=== PATIENT | male | born 1965 | race Caucasian/White ===

== ENCOUNTER 2017-08-18 19:59 | Emergency (ER) | payer MEDICAID, MEDICARE ==
[2017-08-18] MEDS ORDERED: Naproxen 550 mg Tab PO STA (20:30)
[2017-08-18] MEDS ORDERED: Naproxen 550 mg Tab PO ONE (20:33)
--- NOTE | 2017-08-18 20:37 | C.PDOC ---
History Of Present Illness 52 y/o male with iddm and chronic right knee pain (due to injured nerve and torn ligament per patient, with 20 yrs of decreased rom, wears a soft knee support chronically and uses crutches for the last 2-3 years)) c/o right knee pain and swelling after a trip and fall just prior to arrival. pt did not hit head, no loc, no neck pain. denies any other injuries. - HPI Time Seen by Provider: 08/18/17 20:23 Chief Complaint (Nursing): Trauma History Per: Patient History/Exam Limitations: no limitations Onset/Duration Of Symptoms: Hrs (1) Injury Occurred (Timing): Just Before Arrival Location Of Injury: Right: Knee Severity: Moderate Past Medical History Reviewed: Historical Data, Nursing Documentation, Vital Signs Vital Signs: Last Vital Signs Temp 97.9 F 08/18/17 20:07 Pulse 102 H 08/18/17 21:22 Resp 20 08/18/17 21:22 BP 119/68 08/18/17 21:22 Pulse Ox 100 08/18/17 21:50 - Medical History PMH: Diabetes (IDDM), Gastrointestinal Ulcer, HTN, Hypercholesterolemia, Kidney Stones, Chronic Kidney Disease Surgical History: Coronary Stent (X3) - [facility] Procedures DILATION OF RIGHT URETER WITH INTRALUMINAL DEVICE, ENDO (08/10/15) ESOPHAGOGASTRODUODENOSCOPY [EGD] W/CLOSED BIOPSY (06/12/15) EXCISION OF SMALL INTESTINE, ENDO, DIAGN (08/10/15) EXTIRPATION OF MATTER FROM RIGHT URETER, ENDO (08/10/15) Family History: States: Unknown Family Hx - Social History Hx Tobacco Use: No Hx Alcohol Use: No Hx Substance Use: No - Immunization History Hx Tetanus Toxoid Vaccination: No Hx Influenza Vaccination: No Hx Pneumococcal Vaccination: No Review Of Systems Cardiovascular: Negative for: Chest Pain Musculoskeletal: Positive for: Leg Pain (right knee). Negative for: Neck Pain, Foot Pain Neurological: Negative for: Weakness, Numbness Physical Exam - Physical Exam Appears: Non-toxic, No Acute Distress Skin: Warm, Dry, No Ecchymosis Head: Atraumatic, Normacephalic Extremity: No Normal ROM (chronic decreased rom of right knee), Tenderness ( right upper medial knee), No Pedal Edema, No Calf Tenderness, No Deformity, Swelling (right medial knee) Extremity: Right: Joint Effusion (possible right suprapatellar effusion), Limited ROM To Joint (right knee) Neurological/Psych: Oriented x3, Normal Speech, Normal Cognition ED Course And Treatment O2 Sat by Pulse Oximetry: 100 Medical Decision Making Medical Decision Making: pt with chronic right knee problems with trip and fall onto right knee with mild swelling ot right proximal medial knee: cold compress, naproxen and xray. pt has his own knee support brace and crutches. prior to discharge. short knee brace with lateral supports put on patient for comfort. Disposition Counseled Patient/Family Regarding: Studies Performed, Diagnosis, Need For Followup, Rx Given - Disposition Referrals: Carlos Alberto Borja III, MD [Staff Provider] - Disposition: HOME/ ROUTINE Disposition Time: 21:46 Condition: STABLE Additional Instructions: Wear knee brace for support. COld compresses to knee several times a day to help reduce swelling. Follow up with orthopedics. Tylenol or Aleve for pain. Prescriptions: Acetaminophen [Tylenol 325mg tab] 650 mg PO Q6 #30 tab Instructions: Knee Pain (ED) Forms: [facility] ([place]inian), General Discharge Instructions - Clinical Impression Clinical Impression: Fall from slip, trip, or stumble, Contusion of knee, right
[2017-08-18 20:48] VITALS: RESP 20; TEMP 97.9
[2017-08-18 21:23] VITALS: BP 119/68; PULSE 102
[2017-08-18 21:24] VITALS: O2SAT 100
--- NOTE | 2017-08-19 11:25 | RAD ---
PROCEDURE: Right Knee Radiographs. HISTORY: s/p fall, swelling prox/medial knee COMPARISON: None. FINDINGS: BONES: No acute fracture or destructive bony lesion identified. JOINTS: Patellofemoral joint space narrowing suggest degenerative joint disease. JOINT EFFUSION: None. OTHER FINDINGS: Tendinosis type calcifications seen related to the proximal patellar tendon region. There is also soft tissue edema overlying the proximal knee. None. IMPRESSION: No fracture or dislocation identified. Soft tissue edema overlies the proximal knee dorsally and tendinosis density changes seen the proximal patellar tendon region. Limited degenerative joint disease appreciated.
== END 2017-08-18 22:07 | disposition home or self-care (01) ==
LOC: C.ER 19:59
DX: S80.01XA Contusion of right knee, initial encounter (principal); W01.0XXA Fall on same level from slipping, tripping and stumbling without subsequent striking against object, initial encounter; E78.00 Pure hypercholesterolemia, unspecified; E11.9 Type 2 diabetes mellitus without complications; Z79.4 Long term (current) use of insulin; I12.9 Hypertensive chronic kidney disease with stage 1 through stage 4 chronic kidney disease, or unspecified chronic kidney disease; N18.9 Chronic kidney disease, unspecified

== ENCOUNTER 2018-08-27 14:47 | Emergency (ER) | payer MEDICARE ==
[2018-08-27 15:10] VITALS: BP 132/80; PULSE 100; RESP 20; TEMP 98.5; O2SAT 100
--- NOTE | 2018-08-27 15:58 | C.PDOC ---
History Of Present Illness 53 y/o male presents to the ED complaining of an abscess to his back for 1 week. Patient describes a painful swelling located in the mid-thoracic, right paraspinal region. He notes there is a small opening with drainage. The area has become increasingly painful, such that he cannot lie down. Otherwise patient denies any fevers, chills, nausea, vomiting, or headache. Time Seen by Provider: 08/27/18 15:20 Chief Complaint (Nursing): Back Pain History Per: Patient History/Exam Limitations: no limitations Onset/Duration Of Symptoms: Days Current Symptoms Are (Timing): Still Present Past Medical History Reviewed: Historical Data, Nursing Documentation, Vital Signs Vital Signs: Last Vital Signs Temp 98.5 F 08/27/18 15:05 Pulse 100 H 08/27/18 15:05 Resp 20 08/27/18 15:05 BP 132/80 08/27/18 15:05 Pulse Ox 100 08/27/18 15:05 - Medical History PMH: Diabetes (IDDM), Gastrointestinal Ulcer, HTN, Hypercholesterolemia, Kidney Stones, Chronic Kidney Disease Surgical History: Coronary Stent (X3) - [facility] Procedures DILATION OF RIGHT URETER WITH INTRALUMINAL DEVICE, ENDO (08/10/15) ESOPHAGOGASTRODUODENOSCOPY [EGD] W/CLOSED BIOPSY (06/12/15) EXCISION OF SMALL INTESTINE, ENDO, DIAGN (08/10/15) EXTIRPATION OF MATTER FROM RIGHT URETER, ENDO (08/10/15) Family History: States: Unknown Family Hx - Social History Hx Tobacco Use: No Hx Alcohol Use: No Hx Substance Use: No - Immunization History Hx Tetanus Toxoid Vaccination: No Hx Influenza Vaccination: No Hx Pneumococcal Vaccination: No Review Of Systems Constitutional: Negative for: Fever, Chills Cardiovascular: Negative for: Chest Pain Respiratory: Negative for: Shortness of Breath Gastrointestinal: Negative for: Nausea, Vomiting Musculoskeletal: Positive for: Back Pain. Negative for: Neck Pain Skin: Positive for: Other (abscess to back) Neurological: Negative for: Weakness, Numbness, Headache Physical Exam - Physical Exam Appears: Non-toxic, No Acute Distress Skin: Warm, Dry Head: Atraumatic, Normacephalic Eye(s): bilateral: Normal Inspection Oral Mucosa: Moist Neck: Normal ROM Respiratory: No Accessory Muscle Use, Other (speaking in full sentences) Gastrointestinal/Abdominal: Soft, No Tenderness, No Distention Back: Other (Large, round, 4 x 4 cm area of erythema and induration, + tender to palpation, with a few small openings and purulent drainage) Extremity: Bilateral: Normal Color And Temperature, Normal ROM Neurological/Psych: Oriented x3, Normal Speech ED Course And Treatment O2 Sat by Pulse Oximetry: 100 (RA) Pulse Ox Interpretation: Normal - Incision & Drainage Of Abscess Anesthesia: Lidocaine 2% Prep Used: Sterile Water, Betadine Procedure: Incised W/Scalpel Blade#: (11, 1 cm incision made), Drained Pus (5 cc bloody purulent material expressed), Irrigated Cavity W/Saline, Probed To Break Up Loculations, Packed W/Gauze Medical Decision Making Medical Decision Making: Impression: Abscess Plan: --Lido 2% ordered for I&D Procedure performed, tolerated well by patient. Educated patient on applying warm compress and taking antibiotics as written. Follow-up instructions provided. Disposition Counseled Patient/Family Regarding: Diagnosis, Need For Followup, Rx Given - Disposition Disposition: HOME/ ROUTINE Disposition Time: 15:55 Condition: STABLE Additional Instructions: Keep area clean and dry. Return to the Emergency Department or your doctor for dressing change and wound check. Prescriptions: Clindamycin [Cleocin] 1 cap PO QID #30 cap Instructions: Abscess Drainage, Percutaneous (DC) Forms: [facility] ([place]), General Discharge Instructions - POA Present On Arrival: None - Clinical Impression Clinical Impression: Abscess - Scribe Statement The provider has reviewed the documentation as recorded by the Renetta Mock Provider Attestation: All medical record entries made by the Renetta were at my direction and personally dictated by me. I have reviewed the chart and agree that the record accurately reflects my personal performance of the history, physical exam, medical decision making, and the department course for this patient. I have also personally directed, reviewed, and agree with the discharge instructions and disposition.
== END 2018-08-27 16:04 | disposition home or self-care (01) ==
LOC: C.ER 14:47
DX: L02.212 Cutaneous abscess of back [any part, except buttock and flank] (principal)

== ENCOUNTER 2018-08-29 12:12 | Emergency (ER) | payer MEDICARE ==
--- NOTE | 2018-08-29 12:33 | C.PDOC ---
History Of Present Illness 53 y/o male, w/PMhx of disability, presents to the ER for wound check and dressing change in the back. Patient was seen by me for large abscess to paraspinal thoracic region 2 days ago. The abscess was tender, fluctuant and warm to touch at the time. He had an I&d done by me. Patient denies having fever and chills. Time Seen by Provider: 08/29/18 12:21 Chief Complaint (Nursing): Abnormal Skin Integrity History Per: Patient History/Exam Limitations: no limitations Onset/Duration Of Symptoms: Days Current Symptoms Are (Timing): Still Present Severity: Moderate Past Medical History Reviewed: Historical Data, Nursing Documentation, Vital Signs Vital Signs: Last Vital Signs Temp 98.2 F 08/29/18 12:15 Pulse 107 H 08/29/18 12:15 Resp 19 08/29/18 12:15 BP 129/76 08/29/18 12:15 Pulse Ox 97 08/29/18 12:15 - Medical History PMH: Diabetes (IDDM), Gastrointestinal Ulcer, HTN, Hypercholesterolemia, Kidney Stones, Chronic Kidney Disease Surgical History: Coronary Stent (X3) - [facility] Procedures DILATION OF RIGHT URETER WITH INTRALUMINAL DEVICE, ENDO (08/10/15) ESOPHAGOGASTRODUODENOSCOPY [EGD] W/CLOSED BIOPSY (06/12/15) EXCISION OF SMALL INTESTINE, ENDO, DIAGN (08/10/15) EXTIRPATION OF MATTER FROM RIGHT URETER, ENDO (08/10/15) Family History: States: No Known Family Hx - Social History Hx Tobacco Use: No Hx Alcohol Use: No Hx Substance Use: No - Immunization History Hx Tetanus Toxoid Vaccination: No Hx Influenza Vaccination: No Hx Pneumococcal Vaccination: No Review Of Systems Except As Marked, All Systems Reviewed And Found Negative. Constitutional: Negative for: Fever, Chills Physical Exam - Physical Exam Appears: Non-toxic, No Acute Distress Skin: Normal Color, Warm, Dry, Other (back: abscess with some purulent drainage, packing in place) Head: Atraumatic, Normacephalic Eye(s): bilateral: Normal Inspection Nose: Normal Oral Mucosa: Moist Neck: Supple Chest: Symmetrical Neurological/Psych: Oriented x3, Normal Speech ED Course And Treatment O2 Sat by Pulse Oximetry: 97 (RA) Pulse Ox Interpretation: Normal Medical Decision Making Medical Decision Making: Abscess still had some oozing.Some more drainage was expressed. New Packing was placed. Disposition Counseled Patient/Family Regarding: Diagnosis, Need For Followup - Disposition Disposition: HOME/ ROUTINE Disposition Time: 12:31 Condition: STABLE Additional Instructions: Keep area clean and dry. Return to the ED or follow up with your doctor 2 days for dressing change and wound check. Forms: [facility] ([place]alian), General Discharge Instructions - POA Present On Arrival: None - Clinical Impression Clinical Impression: Abscess, Wound check, abscess - Scribe Statement The provider has reviewed the documentation as recorded by the Renetta Childers Provider Attestation: All medical record entries made by the Jackibe were at my direction and personally dictated by me. I have reviewed the chart and agree that the record accurately reflects my personal performance of the history, physical exam, medical decision making, and the department course for this patient. I have also personally directed, reviewed, and agree with the discharge instructions and disposition.
[2018-08-29 12:37] VITALS: BP 129/76; PULSE 107; RESP 19; TEMP 98.2; O2SAT 97
== END 2018-08-29 12:50 | disposition home or self-care (01) ==
LOC: C.ER 12:12
DX: Z48.00 Encounter for change or removal of nonsurgical wound dressing (principal); L02.212 Cutaneous abscess of back [any part, except buttock and flank]

== ENCOUNTER 2018-09-02 13:22 | Emergency (ER) | payer MEDICARE ==
[2018-09-02 13:32] VITALS: BP 146/82; PULSE 100; RESP 16; TEMP 98.1; O2SAT 100
--- NOTE | 2018-09-02 13:49 | C.PDOC ---
History Of Present Illness The patient is a 53 year old male who was evaluated in this ED on 08/27 with an abscess to his mid-thoracic paraspinal region. He underwent incision and drainage of 55cc of pus and discharged with packing. Patient returns to the ED for dressing change and packing removal as instructed. He states his symptoms have been improving and denies fever, chills. Time Seen by Provider: 09/02/18 13:34 Chief Complaint (Nursing): Abnormal Skin Integrity History Per: Patient History/Exam Limitations: no limitations Onset/Duration Of Symptoms: Days Current Symptoms Are (Timing): Still Present Quality Of Symptoms: denies: Painful, Itching, Swollen, Draining Additional History Per: Patient Past Medical History Reviewed: Historical Data, Nursing Documentation, Vital Signs Vital Signs: Last Vital Signs Temp 98.1 F 09/02/18 13:29 Pulse 100 H 09/02/18 13:29 Resp 16 09/02/18 13:29 BP 146/82 09/02/18 13:29 Pulse Ox 100 09/02/18 13:29 - Medical History PMH: Diabetes (IDDM), Gastrointestinal Ulcer, HTN, Hypercholesterolemia, Kidney Stones, Chronic Kidney Disease Surgical History: Coronary Stent (X3) - [facility] Procedures DILATION OF RIGHT URETER WITH INTRALUMINAL DEVICE, ENDO (08/10/15) ESOPHAGOGASTRODUODENOSCOPY [EGD] W/CLOSED BIOPSY (06/12/15) EXCISION OF SMALL INTESTINE, ENDO, DIAGN (08/10/15) EXTIRPATION OF MATTER FROM RIGHT URETER, ENDO (08/10/15) Family History: States: Unknown Family Hx - Social History Hx Tobacco Use: No Hx Alcohol Use: No Hx Substance Use: No - Immunization History Hx Tetanus Toxoid Vaccination: No Hx Influenza Vaccination: No Hx Pneumococcal Vaccination: No Review Of Systems Constitutional: Negative for: Fever, Chills Skin: Positive for: Other (dressing change and packing removal ) Physical Exam - Physical Exam Appears: Non-toxic, No Acute Distress Skin: Normal Color, Warm, Dry, Other (mid-thoracic paraspinal region: induration to the area. clean incision with significantly resolved erythema. Slight purulent and bloody discharge noted ) Extremity: Normal ROM Neurological/Psych: Oriented x3, Normal Speech, Normal Cognition ED Course And Treatment O2 Sat by Pulse Oximetry: 100 (on RA ) Pulse Ox Interpretation: Normal Disposition Counseled Patient/Family Regarding: Diagnosis - Disposition Disposition: HOME/ ROUTINE Disposition Time: 14:15 Condition: STABLE Forms: [facility] ([place]an), General Discharge Instructions - POA Present On Arrival: None - Clinical Impression Clinical Impression: Wound check, abscess - Scribe Statement The provider has reviewed the documentation as recorded by the Scribe (Suzanna Gibbs) Provider Attestation: All medical record entries made by the Scribe were at my direction and personally dictated by me. I have reviewed the chart and agree that the record accurately reflects my personal performance of the history, physical exam, medical decision making, and the department course for this patient. I have also personally directed, reviewed, and agree with the discharge instructions and disposition.
== END 2018-09-02 14:24 | disposition home or self-care (01) ==
LOC: C.ER 13:22
DX: Z48.00 Encounter for change or removal of nonsurgical wound dressing (principal); L02.212 Cutaneous abscess of back [any part, except buttock and flank]